=== PATIENT | female | born 1965 | race Caucasian/White ===

== ENCOUNTER → 2017-04-04 | Day surgery (SDC) | payer OTHER ==
[~2017-04-04] VITALS: Ht 167.6 cm; Wt 108.0 kg
[~2017-04-04] MED LIST: 0.9% Sodium Chloride 1,000 ML IV ONE; 0.9% Sodium Chloride 1,000 ML IV PRN; ALPR0.5T8 PO; AMLO10TA3 PO; BUPR150T12 PO; HYG25 PO; IRBE300T42 PO; SERT100T9 PO; Sodium Chloride LOK Flush 10 mL Syringe IV PRN; ZALE10CA PO; fentaNYL-PF 50 mCg/mL 2 mL Inj IVPUSH PRN
[2017-04-04 08:17] VITALS: BP 134/91; PULSE 79; RESP 14; O2SAT 95
[2017-04-04 09:11] VITALS: BP 132/83; PULSE 76; RESP 16; O2SAT 96
[2017-04-04 09:21] VITALS: BP 122/81; PULSE 76; RESP 14; O2SAT 96
[2017-04-04 09:23] VITALS: BP 134/79; PULSE 7; RESP 16; O2SAT 97
--- NOTE | 2017-04-04 09:42 | ENDO ---
[address] [address] ENDOSCOPY PROCEDURE PATIENT: EMILY VÁSQUEZ : 1965 MR#: [id number] ADMIT: 04/04/2017 JOB ID: [id number] DATE: 04/04/2017 PROCEDURE: Colonoscopy. INDICATION: Screening. ASA CLASSIFICATION: 1. MALLAMPATI SCORE: 2. MEDICATIONS: Versed 5 mg, fentanyl 100 mcg. INSTRUMENT USED: PCF-H180-AL PREPARATION QUALITY: Good. PROCEDURE DETAILS: After informed consent was obtained, the patient was brought into the GI suite, where she was placed on oxygen via nasal cannula and monitored with continuous pulse oximeter, telemetry, and blood pressure monitoring. A time-out was performed. Then, she was placed in a left lateral decubitus position and medications were administered for sedation. Digital rectal exam was performed, which was unremarkable. The colonoscope was then inserted into the rectum and advanced under direct visualization to the cecum, which was identified by the presence of the ileocecal valve and appendiceal orifice. Once the cecum was reached, the colonoscope was withdrawn back into the rectum as the mucosa and lumen were examined. In the rectum, retroflexion was performed. Following retroflexion, remaining air in the rectum was suctioned, and procedure was completed. FINDINGS: 1. In the cecum, just next to the appendiceal orifice, there was an approximately 4 mm sessile polyp that was removed with a cold snare. 2. In the ascending colon, there were two polyps that measured approximately 5 mm each that were sessile, and they were removed with cold snare. IMPRESSION: 1. One cecal polyp. 2. Two ascending colon polyps. RECOMMENDATIONS: Repeat colonoscopy in three years. COMPLICATIONS: None. ESTIMATED BLOOD LOSS: Less than 5 mL.
--- NOTE | 2017-04-05 17:19 | PATH ---
SURGICAL PATHOLOGY Attending Physician:Haleigh Bell CASE STATUS: Signed Out PATIENT NAME: EMILY VÁSQUEZ PID: [id number] : 1965 DATE COLLECTED:04/04/2017 16:42 SPECIMEN: 1: Colon, Polyp 2: Colon, Polyp CLINICAL HISTORY: 1). CECUM POLYP 2). ASCENDING POLYPS FINAL DIAGNOSIS: 1. Cecum Polyp, Polypectomy: Sessile serrated adenoma. 2. Ascending Colon Polyps, Polypectomy: Fragments of serrated polyp, some of which are unequivocally sessile serrated adenoma. ICD10: D12.0 D12.2 NOTE: Part 2: Given the fragmented nature of the specimen, it is unclear if this represents two sessile serrated adenomas or one sessile serrated adenoma and one hyperplastic polyp. GROSS DESCRIPTION: The specimen is received in two formalin filled containers labeled with the patient's name. 1). The specimen is labeled "cecum polyp" and consists of 2 portions of tissue which aggregate to 0.4 x 0.4 x 0.2 CM. The specimen is entirely submitted in cassette 1A. 2). The specimen is labeled "ascending polyps" and consists of multiple portions of tissue which aggregate to 0.4 x 0.4 x 0.2 CM. The specimen is entirely submitted in cassette 2A. 04/04/2017DC ICD-9 CODES: CPT CODES: 1: 65374 2: 95007 Electronically Signed Out Binh Mae MD, Ph.D. [facility] Pathology [facility], [place] [address] Technical component performed at [facility], [facility] [address], [place], [address]
== END | disposition home or self-care (01) ==
LOC: END 01:26
PROVIDERS: ATTEND Internal Medicine Gastroenterology
DX: Z12.11 Encounter for screening for malignant neoplasm of colon (principal); D12.0 Benign neoplasm of cecum; D12.2 Benign neoplasm of ascending colon; I10 Essential (primary) hypertension; E66.01 Morbid (severe) obesity due to excess calories; F41.8 Other specified anxiety disorders; Z98.84 Bariatric surgery status; Z68.41 Body mass index [BMI] 40.0-44.9, adult; Z86.69 Personal history of other diseases of the nervous system and sense organs
CPT/HCPCS: 45385; 99153; G0500; J2250; J3010; J7030